=== PATIENT | female | born 1980 | race Caucasian/White ===

== ENCOUNTER 2016-12-01 17:07 | Emergency (ER) | payer OTHER ==
[~2016-12-01] VITALS: Ht 160 cm; Wt 79.7 kg
[~2016-12-01 17:07] MED LIST: IBUP600T44 PO; OXYC-57 OR; PRENTAB26 PO
[2016-12-01 17:11] VITALS: TEMP 37; Ht 160 cm; Wt 79.7 kg
--- NOTE | 2016-12-01 17:50 | DIAGNOSTIC IMAGING REPORT ---
LEFT ANKLE MIN 3 VIEWS ROUTINE CLINICAL HISTORY: Left ankle pain status post trauma COMPARISON: None. DISCUSSION: No fractures or dislocations are visualized. The ankle mortise appears intact. THERE IS NO EVIDENCE FOR SOFT TISSUE SWELLING. IMPRESSION: No fractures or dislocations identified. Electronically signed by: Tyler Robertson M.D. 12/01/2016 5:49 PM Dictated Date/Time: 12/01/2016 5:48 PM
--- NOTE | 2016-12-01 18:32 | DIAGNOSTIC IMAGING REPORT ---
RIGHT WRIST W/NAVICULAR MIN 3 VIEWS CLINICAL HISTORY: Right wrist pain status post trauma COMPARISON: None. DISCUSSION: No acute fractures or dislocations are visualized. IMPRESSION: No fractures or dislocations identified. Electronically signed by: Tyler Robertson M.D. 12/01/2016 6:30 PM Dictated Date/Time: 12/01/2016 6:29 PM
--- NOTE | 2016-12-01 18:42 | EMERGENCY ROOM VISIT NOTE ---
ED Visit Note First contact with patient: 17:44 CHIEF COMPLAINT: Ankle pain, wrist pain s/p fall HISTORY OF PRESENT ILLNESS: This 36-year-old female patient presents to the emergency department approximately 3 hours after sustaining an injury to the left ankle and foot with a twisting, inversion motion when she slipped in water at [facility] and fell. The patient also sustained a injury to her right wrist and forearm with the fall. The patient states she slipped in the ice, twisted her ankle, and fell forward on an outstretched hand. The patient complains of pain along the outside of the ankle. The patient denies pain of the foot. The patient rates the pain as constant and 7/10. The patient is able to bear weight on the foot. Constant pain, worse with movement, weight bearing, and the dependent position. No knee pain, the patient is able to move their toes. No numbness or weakness of the foot, no laceration. The patient has not had a previous fracture to this ankle. The patient reports pain in her medial right forearm which is radiating from the wrist. The patient states she noticed some superficial scratches on this part of her forearm, and believes they are new after the fall. The patient states the pain in her wrist is in the lateral aspect, and worse on palpation. The patient initially had some nausea while at [facility], after the fall, however has not vomited. She denies head injury, loss of consciousness, ringing in her ears, blurry vision, or other associated symptoms. The patient has taken nothing for the pain. The patient denies any other injury. REVIEW OF SYSTEMS: A 6 system review of systems was completed with positives and pertinent negatives listed in the HPI. ALLERGIES: None MEDICATIONS: None PMH: None SOCIAL HISTORY: The patient lives locally with family. She denies drug, alcohol , tobacco use. PHYSICAL EXAM: Vital Signs: Reviewed Nurse's notes, vital signs stable. GENERAL : This is a 36-year-old female, no acute distress, but appears in pain, well- developed, well-nourished. MENTAL STATUS: Alert, oriented to person place and time, and cooperative. MUSCULOSKELETAL: The left ankle is very mildly swollen and tender over the lateral malleolus, but the skin is intact and there is no ligamentous instability. There is mild fifth metatarsal tenderness. There is no tenderness over the rest of the foot. There is no calf or tibia/fibular tenderness. There is no visual deformity. The foot and toes are warm and well- perfused. Dorsalis pedis pulse 2+. Sensation to pain and light touch is intact. Capillary refill less than 2 seconds. There is no deformity of the right forearm or wrist. There is tenderness and edema over the lateral aspect of the right wrist. There is no snuff box tenderness. Range of motion is full. There is no tenderness of the elbow, hand or fingers. [employer] strength 5/5. Radial pulse 2+. SKIN: several very superficial lacerations over the posterior forearm. No active bleeding. No erythema or ecchymosis. Otherwise, skin without abnormalities. RADIOLOGY: X-Ray Right Wrist: DISCUSSION: No acute fractures or dislocations are visualized. IMPRESSION: No fractures or dislocations identified. X-Ray Left Ankle: DISCUSSION: No fractures or dislocations are visualized. The ankle mortise appears intact. THERE IS NO EVIDENCE FOR SOFT TISSUE SWELLING. IMPRESSION: No fractures or dislocations identified. EMERGENCY DEPARTMENT COURSE: I examined the patient. Presented with several complaints, all related to her fall. X-rays of the right wrist and left ankle were reviewed by myself and read by radiology and reveal no acute fracture or dislocation. I discussed treatment options with the patient including splints, crutches, or Osorio wraps. The patient declines all of these, so I encouraged her to use ibuprofen and Tylenol for her discomfort, and follow up with her PCP this week. The patient was discharged home in good condition. DIFFERENTIAL DIAGNOSIS: Ankle fracture, wrist fracture, forearm fracture, head injury, wrist sprain, ankle sprain, contusion, infection, lacerations, and others. DIAGNOSIS: Left ankle sprain, right wrist contusion, fall DISCHARGE INSTRUCTIONS: You have been treated in the Emergency Department for Wrist Pain and an ankle sprain after falling. For pain control, you can use the following [id number] medicines (if >12 yo): - Regular strength (325mg/tab) Tylenol (acetaminophen) 2 tabs every 4-6 hours as needed. Do not exceed 9 tablets in a 24 hour period. Avoid taking more than 3 grams (3000 mg) of Tylenol per day. This includes any other sources of acetaminophen you may take on a regular basis. - Regular strength (200 mg/tab) Advil (ibuprofen) 1-2 tabs every 4-6 hours as needed. Do not exceed a dose of 3200 mg per day. If this is a recent injury (<24 hrs), ice can be applied to the area of pain for the first 3 days to help decrease pain and inflammation. You have been provided the number for an Orthopaedic Surgeon. You should call this number if no improvement in one week to establish a follow-up visit from today's Emergency Department visit. You should follow up with your primary care provider in one to 2 days for recheck of today's injuries. Return to the Emergency Department if your current symptoms worsen despite treatment course outlined above, or if you develop any of the following symptoms : intractable pain despite aforementioned treatment course or new onset of numbness or tingling of the fingers. Current/Historical Medications No Active Prescriptions or Reported Meds Allergies Coded Allergies: No Known Allergies (Verified Allergy, Unknown, 03/14/06) Vital Signs Date Time Temp Pulse Resp B/P (MAP) Pulse Ox O2 Delivery O2 Flow Rate FiO2 12/01/16 19:06 65 16 137/78 98 12/01/16 17:11 37.0 71 16 134/89 99 Room Air Departure Information Impression Primary Impression: Left ankle sprain Additional Impressions: Contusion of wrist, right Fall Dispostion Home / Self-Care Condition GOOD Prescriptions No Active Prescriptions or Reported Meds Referrals Mamie Gardner DO (PCP) Patient Instructions ED Mechanical Fall, ED Sprain Ankle, ED Sprain Wrist, [facility] Additional Instructions You have been treated in the Emergency Department for Wrist Pain and an ankle sprain after falling. For pain control, you can use the following [id number] medicines (if >12 yo): - Regular strength (325mg/tab) Tylenol (acetaminophen) 2 tabs every 4-6 hours as needed. Do not exceed 9 tablets in a 24 hour period. Avoid taking more than 3 grams (3000 mg) of Tylenol per day. This includes any other sources of acetaminophen you may take on a regular basis. - Regular strength (200 mg/tab) Advil (ibuprofen) 1-2 tabs every 4-6 hours as needed. Do not exceed a dose of 3200 mg per day. If this is a recent injury (<24 hrs), ice can be applied to the area of pain for the first 3 days to help decrease pain and inflammation. You have been provided the number for an Orthopaedic Surgeon. You should call this number if no improvement in one week to establish a follow-up visit from today's Emergency Department visit. You should follow up with your primary care provider in one to 2 days for recheck of today's injuries. Return to the Emergency Department if your current symptoms worsen despite treatment course outlined above, or if you develop any of the following symptoms : intractable pain despite aforementioned treatment course or new onset of numbness or tingling of the fingers. Problem Qualifiers Primary Impression: Left ankle sprain Encounter type: initial encounter Involved ligament of ankle: unspecified ligament Qualified Codes: S93.402A - Sprain of unspecified ligament of left ankle, initial encounter Additional Impressions: Contusion of wrist, right Encounter type: initial encounter Qualified Codes: S60.211A - Contusion of right wrist, initial encounter Fall Encounter type: initial encounter Qualified Codes: W19.XXXA - Unspecified fall, initial encounter
[2016-12-01 19:06] VITALS: BP 137/78; PULSE 65; O2SAT 98
== END 2016-12-01 19:06 | disposition home or self-care (01) ==
LOC: C.EDB 17:10 → C.EDD 19:06
DX: S93.402A Sprain of unspecified ligament of left ankle, initial encounter (principal); S60.211A Contusion of right wrist, initial encounter; W01.0XXA Fall on same level from slipping, tripping and stumbling without subsequent striking against object, initial encounter; Y92.89 Other specified places as the place of occurrence of the external cause